=== PATIENT | male | born 1995 | race Caucasian/White ===

== ENCOUNTER 2017-05-20 08:59 | Emergency (ER) | payer OTHER ==
[2017-05-20] MEDS ORDERED: Ondansetron INJ* 2 MG/ML VIAL IV ONE (09:19)
[2017-05-20] MEDS ORDERED: NS 0.9% 1000 ML* 2,000 ML IV ONE (09:19)
[2017-05-20 09:31] LABS: ABS Basophils 0 10^3/ul (0-0.2); ABS Eosinophils 0 10^3/ul (0-0.6); ABS Lymphocytes 0.3 10^3/ul (1.0-4.8); ABS Monocytes 0.5 10^3/ul (0-0.8); ABS Nucleated RBC 0.1 10^3/ul; Eosinophil % 0.3 % (0-6); Hematocrit 45 % (42-52); Hemoglobin 15.4 g/dl (14.0-18.0); Lymphocyte % 2.4 % (25-47); Mean Corpuscular HGB Conc 35 g/dl (31-36); Mean Corpuscular Hemoglobin 31 pg (27-31); Mean Corpuscular Volume 91 fL (80-94); Mean Platelet Volume 7 um3 (7.4-10.4); Nucleated Red Blood Cells % 0.4; Platelet Count 142 10^3/ul (150-450); Red Blood Count 4.88 10^6/ul (4.0-5.4); Red Cell Distribution Width 13 % (10.5-15); White Blood Count 10.7 10^3/ul (3.5-10.8)
[2017-05-20 12:49] VITALS: BP 94/50
--- NOTE | 2017-05-22 08:14 | ED ---
Lester Rodriguez Angela, scribed for Ar Alvarenga MD on 05/20/17 at 0916 . GI/ HPI - HPI Summary HPI Summary: This pt is a 22 y/o male presenting to [facility] c/o vomiting and diarrhea since 01: 00 today. Pt reports that he has had 4 episodes of diarrhea, described as watery and non-bloody. Pt states he ate left over [employer] food that was sitting out for too long. He denies any abd pain. Denies any PMHx or PSHx. - History of Current Complaint Chief Complaint: EDNauseaVomitDiarrh Time Seen by Provider: 05/20/17 09:15 Stated Complaint: VOMITING Hx Obtained From: Patient Onset/Duration: Started Hours Ago, Still Present Timing: Lasting Hours Current Severity: Moderate Pain Intensity: 0 - no pain Associated Signs and Symptoms: Positive: Nausea, Vomiting, Diarrhea Aggravating Factor(s): Nothing Alleviating Factor(s): Nothing - Allergy/Home Medications Allergies/Adverse Reactions: Allergies Allergy/AdvReac Type Severity Reaction Status Date / Time No Known Allergies Allergy Verified 05/20/17 09:30 PMH/Surg Hx/FS Hx/Imm Hx Endocrine/Hematology History: Denies: Hx Diabetes Cardiovascular History: Denies: Hx Hypertension - Surgical History Surgery Procedure, Year, and Place: none Infectious Disease History: No Infectious Disease History: Denies: Traveled Outside the [place] in Last 30 Days - Family History Known Family History: Positive: Diabetes - Social History Alcohol Use: None Substance Use Type: Reports: None Smoking Status (MU): Never Smoked Tobacco Review of Systems Negative: Fever, Chills Eyes: Negative ENT: Negative Cardiovascular: Negative Positive: Vomiting, Diarrhea, Nausea. Negative: Abdominal Pain Musculoskeletal: Negative Skin: Negative Neurological: Negative All Other Systems Reviewed And Are Negative: Yes Physical Exam - Summary Physical Exam Summary: VITAL SIGNS: Reviewed. GENERAL: Patient is a well-developed and nourished male who is lying comfortable in the stretcher. Patient is not in any acute respiratory distress. HEAD AND FACE: No signs of trauma. No ecchymosis, hematomas or skull depressions. No sinus tenderness. EYES: PERRLA, EOMI x 2, No injected conjunctiva, no nystagmus. EARS: Hearing grossly intact. Ear canals and tympanic membranes are within normal limits. MOUTH: Oropharynx within normal limits. NECK: Supple, trachea is midline, no adenopathy, no JVD, no carotid bruit, no c- spine tenderness, neck with full ROM. CHEST: Symmetric, no tenderness at palpation LUNGS: Clear to auscultation bilaterally. No wheezing or crackles. CVS: Regular rate and rhythm, S1 and S2 present, no murmurs or gallops appreciated. ABDOMEN: Soft, non-tender. No signs of distention. No rebound no guarding, and no masses palpated. Bowel sounds are normal. EXTREMITIES: FROM in all major joints, no edema, no cyanosis or clubbing. NEURO: Alert and oriented x 3. No acute neurological deficits. Speech is normal and follows commands. SKIN: Dry and warm Triage Information Reviewed: Yes Vital Signs On Initial Exam: Initial Vitals Temp Pulse Resp BP Pulse Ox 98.9 F 97 16 109/59 96 05/20/17 09:03 05/20/17 09:03 05/20/17 09:03 05/20/17 09:03 05/20/17 09:03 Vital Signs Reviewed: Yes Diagnostics - Vital Signs Vital Signs Temp Pulse Resp BP Pulse Ox 05/20/17 09:03 98.9 F 97 16 109/59 96 - Laboratory Result Diagrams: 05/20/17 09:25 05/20/17 09:25 Lab Statement: Any lab studies that have been ordered have been reviewed, and results considered in the medical decision making process. Re-Evaluation - Re-Evaluation First Eval Re-Evaluation Time: 12:26 Change: Improved Comment: Pt reports he is feeling much better. He was given a PO challenge without any nausea or vomiting. Pt will be discharged with anti-nausea medications. GIGU Course/Dx - Course Assessment/Plan: This pt is a 22 y/o male presenting to [facility] c/o vomiting and diarrhea since 01:00 today. Pt reports that he has had 4 episodes of diarrhea, described as watery and non-bloody. Pt states he ate left over [place] food that was sitting out for too long. He denies any abd pain. Denies any PMHx or PSHx. Test results without any significant abnormalities except for glucose of 145, total bilirubin of 1.50, CRP of 21.83. In the ED course the pt was given IV fluids and Zofran. Pt reports he is feeling much better after this medication. He was given a PO challenge and passed without any nausea or vomiting. Pt is tolerating PO without nausea or vomiting. Therefore, pt will be discharged to home with follow up from his PCP and a prescription for anti-nausea medication. He is instructed to return to the ED for any worsening or new symptoms. Pt understands and agrees. Pt is hemodynamically stable, alert and oriented x3. - Diagnoses Provider Diagnoses: Nausea, vomiting and diarrhea Discharge - Discharge Plan Condition: Stable Disposition: HOME Prescriptions: Ondansetron TAB* [Zofran 4 MG Tab*] 4 mg PO Q6H PRN #10 tab PRN Reason: Vomiting Patient Education Materials: Acute Nausea and Vomiting (ED), Acute Diarrhea (ED ) Referrals: [facility] - Kaleb ANDERSON [Primary Care Provider] - 3 Days Additional Instructions: Please follow up with your primary care provider at [facility]. RETURN TO THE ED FOR ANY WORSENING SYMPTOMS. The documentation as recorded by the Lester mirza Angela accurately reflects the service I personally performed and the decisions made by , Ar Alvarenga MD.
== END 2017-05-20 12:47 | disposition home or self-care (01) ==
LOC: ED 08:59
DX: R11.2 Nausea with vomiting, unspecified (principal); R19.7 Diarrhea, unspecified
CPT/HCPCS: 36415; 80053; 83690; 83735; 85025; 86140; 96374; 99282; J2405